=== PATIENT | female | born 1985 | race Native Hawaiian/Other Pacific Islander ===

== ENCOUNTER 2018-07-13 07:36 | Emergency (ER) | payer OTHER ==
[2018-07-13 07:37] VITALS: BMI 38.0
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
[2018-07-13 09:02] VITALS: BP 123/85; PULSE 78; RESP 16; TEMP 97.3; O2SAT 99
--- NOTE | 2018-07-13 09:50 | RAD ---
Date of service: 07/13/2018 PROCEDURE: Radiographs of the Left Shoulder HISTORY: Injury COMPARISON: No prior. FINDINGS: BONES: Normal. No fracture. JOINTS: Normal. Glenohumeral and acromioclavicular joints preserved. No osteoarthritis. SOFT TISSUES: Normal. OTHER FINDINGS: None. IMPRESSION: Normal radiographs of the left shoulder.
--- NOTE | 2018-07-13 09:52 | RAD ---
Date of service: 07/13/2018 PROCEDURE: Cervical Spine Radiographs. HISTORY: Pain. COMPARISON: None available. FINDINGS: BONES: There is straightening of the normal cervical lordosis likely due to patient positioning however underlying element of muscle spasm may contribute.. No evidence of acute displaced fracture nor retropulsed fragments. Vertebral bodies exhibit normal stature. Note that the distal tip of the odontoid is partially obscured by overlying occiput in the open-mouth projection DISC SPACES: Disc space heights maintained. SOFT TISSUES: Normal. No prevertebral soft tissue swelling. OTHER FINDINGS: None. IMPRESSION: No acute fracture so far as can be seen within limitation of the study as detailed above. If symptoms persist occult fracture or cord injury suspected clinically recommend follow-up MRI.
== END 2018-07-13 09:04 | disposition home or self-care (01) ==
LOC: C.ER 07:36
DX: S46.912A Strain of unspecified muscle, fascia and tendon at shoulder and upper arm level, left arm, initial encounter (principal); S16.1XXA Strain of muscle, fascia and tendon at neck level, initial encounter; V89.2XXA Person injured in unspecified motor-vehicle accident, traffic, initial encounter; Y92.410 Unspecified street and highway as the place of occurrence of the external cause